=== PATIENT | female | born 1995 | race African-American/Black ===

== ENCOUNTER 2022-10-12 15:01 | Emergency (ER) | payer OTHER, SELFPAY ==
--- NOTE | 2022-10-12 15:07 | ED.EYEPROB ---
HPI - Eye Problem General Chief complaint: Eye Problems Stated complaint: left eye pain Time Seen by Provider: 10/12/22 16:45 Related Data Previous Rx's Medication Instructions Recorded erythromycin 5 mg/gram (0.5 %) eye 0.5 inch ophthalmic (eye) Q4H 5 10/12/22 ointment days #3.5 grams Allergies Allergy/AdvReac Type Severity Reaction Status Date / Time No Known Allergies Allergy Verified 10/12/22 15:12 [facility] Social History Social History Advance Directives: No Advance Directives Information Provided: Yes Physical Exam Vital Signs: Vital Signs: Last Vital Signs Temp 98.1 F 10/12/22 15:08 Pulse 73 10/12/22 15:08 Resp 16 10/12/22 15:08 BP 136/87 10/12/22 15:08 Pulse Ox 100 10/12/22 15:08 O2 Del Method 10/12/22 15:08 BMI result Body Mass Index 29.0 Course Course Course Narrative: RME: onset of symptoms 2 weeks ago, not a contact lens wearer, feels somethins stuck in the eye ans scratching it, having left eye pain swelling. Tried rinsing the eye with saline which was helping initially, but today the swelling and pain significantly increased. PE: PERRL, sclera injected, mild periorbital swelling, EOMi, pain worse with upward gaze, no visible foreign body Plan: visual acuity, will require fluorescein examination Medications Administered Discontinued Medications Generic Name Dose Route Start Last Admin Trade Name Freq PRN Reason Stop Dose Admin Diphtheria/Tetanus/Acell Pertussis 0.5 ml 10/12/22 16:51 10/12/22 17:13 Diphth,Pertus(Acell),Tet Adult 0.5 Ml Syringe IM 10/12/22 16:52 0.5 ml .ONCE ONE Administration Erythromycin 1 cm 10/12/22 17:06 10/12/22 17:25 Erythromycin Base 0.5% Oph Oin 1 Gm Tube EYE-LEFT 10/12/22 17:07 1 cm ONCE ONE Administration Fluorescein Sodium 1 strip 10/12/22 16:51 10/12/22 17:13 Fluorescein Sodium Strip EYE-LEFT 10/12/22 16:52 1 strip ONCE ONE Administration Tetracaine HCl 3 drop 10/12/22 17:06 10/12/22 17:15 Tetracaine Hcl/Pf 0.5% Oph Vida 4 Ml Drops EYE-LEFT 10/12/22 17:07 3 drop ONCE ONE Administration Discharge Plan Discharge Clinical Impression: Corneal abrasion Patient Disposition: Home, Self-Care Instructions: Corneal Abrasion (ED) Additional Instructions: You were evaluated for left eye pain. Exam indicates a corneal abrasion. Please use erythromycin eye ointment every 4 hours while awake for the next 5 days. Wash your hands before and after applying the ointment. Follow-up with Dr. Wakefield. I have provided you his phone number, please call and request an appointment for evaluation. Alternate Tylenol 650 mg every 6 hours and Motrin 600 mg every 6 hours as needed for pain management. Write down what time you take these medications to prevent accidental overdose. Prescriptions: New erythromycin 5 mg/gram (0.5 %) ointment 0.5 inch ophthalmic (eye) Q4H 5 Days Qty: 3.5 0RF Referrals: Jesse Wakefield [Physician] - 3 days (Corneal abrasion) Interventions: ED Discharge Assessment Last Done: 10/12/22 17:25 Discharge Date/Time: 10/12/22 17:26
[2022-10-12 15:08] VITALS: BP 136/87; PULSE 73; RESP 16; TEMP 36.7; O2SAT 100; BMI 29.0
--- NOTE | 2022-10-12 16:54 | ED.EYEPROB ---
HPI - Eye Problem General Chief complaint: Eye Problems Stated complaint: left eye pain Time Seen by Provider: 10/12/22 16:45 Source: patient Mode of arrival: ambulatory Limitations: no limitations History of Present Illness HPI Narrative: 26-year-old female presents with 2 days for left eye irritation. Noted pain after cooking, but does not believe that she had any hot oil splashed into her eye. She feels like there is something stuck in her eye, and is unable to alleviate the pain. She has been using saline eye flushes with poor effect. She does not report change in vision, denies purulent drainage, fevers, chills, or traumatic injury. chief complaint: eye pain Onset (ago): day(s) (2) Onset description: sudden Duration: constant Location: left eye Eye Symptoms: redness, foreign body sensation and photophobia Place: home Severity: moderate Severity scale (1-10): 7 If Pain, Quality: burning Associated symptoms: none Treatments Prior to Arrival: irrigated eye Related Data Patient tetanus UTD: No Previous Rx's Medication Instructions Recorded erythromycin 5 mg/gram (0.5 %) eye 0.5 inch ophthalmic (eye) Q4H 5 10/12/22 ointment days #3.5 grams Allergies Allergy/AdvReac Type Severity Reaction Status Date / Time No Known Allergies Allergy Verified 10/12/22 15:12 Review of Systems Review of Systems: Constitutional: No Fever, No Chills ENT/Mouth: No Ear Pain, No Hoarseness, No sore throat Eyes: Positive left Eye Pain, No Swelling, No Redness, No Foreign Body Cardiovascular: No Chest Pain, No SOB Respiratory: No Cough, No Dyspnea Gastrointestinal: No Nausea, No Vomiting, No Diarrhea, No abdominal Pain Genitourinary: No Dysuria, No Hematuria Musculoskeletal: No joint pain, No Myalgias, No Joint Swelling Skin: No Skin lacerations, No rash Neuro: No Weakness, No Numbness, No Paresthesias, No Loss of Consciousness, No Dizziness, No Headache Psych: No Anxiety/Panic, No Depression Heme/Lymph: no easy bruising, no Lymphadenopathy Endocrine: No Polyuria, No Polydipsia Yes all other systems are reviewed and are negative PMFSH Past Medical History Attestation statement: The following information was validated with the patient. Source: old records reviewed Social History Social History Advance Directives: No Advance Directives Information Provided: Yes Physical Exam Vital Signs: Vital Signs: Last Vital Signs Temp 98.1 F 10/12/22 15:08 Pulse 73 10/12/22 15:08 Resp 16 10/12/22 15:08 BP 136/87 10/12/22 15:08 Pulse Ox 100 10/12/22 15:08 O2 Del Method 10/12/22 15:08 BMI result Body Mass Index 29.0 Appearance: Alert. Oriented X3. Moderate distress. Eyes: Pupils equal, round and reactive to light. Fluorescein uptake at the 11 o'clock position to the left eye. No hyphema. globe intact. EOMI. ENT: Pharynx normal. Neck: Normal inspection. Neck supple. CVS: Normal heart rate and rhythm. Pulses normal. Respiratory: No respiratory distress. Breath sounds normal. Abdomen: Soft and nontender. Skin: Skin warm and dry. Normal skin color. Normal skin turgor. Extremities: Gait well balanced well coordinated. Neuro: No motor deficit. No sensory deficit. Cranial nerves 2-12 intact. Course Course Course Narrative: 26-year-old female presents with 2 days of left eye pain. She noted pain to the left eye while cooking 2 days ago. She has been using saline eye irrigation to help alleviate the foreign body sensation. She does not wear contacts, and has unknown when her last Tdap vaccine was updated. She does not recall getting hit in the face with anything or activities that would put her at high risk for eye foreign body. Patient does have fluorescein uptake at the 11 o'clock position on the left eye. Fluorescein uptake is round and less than 1 mm in diameter consistent with abrasion or ulceration. Bedside Snellen 20/20 OU. Patient does not wear contact lenses, will give erythromycin eye ointment and have patient follow-up with Dr. Wakefield. Pain management with Tylenol and Motrin, patient verbalized understanding of and agrees to plan of care discharge home. Verbalized understanding of signs and symptoms indicating need for emergent intervention. Medications Administered Discontinued Medications Generic Name Dose Route Start Last Admin Trade Name Freq PRN Reason Stop Dose Admin Diphtheria/Tetanus/Acell Pertussis 0.5 ml 10/12/22 16:51 10/12/22 17:13 Diphth,Pertus(Acell),Tet Adult 0.5 Ml Syringe IM 10/12/22 16:52 0.5 ml .ONCE ONE Administration Erythromycin 1 cm 10/12/22 17:06 10/12/22 17:25 Erythromycin Base 0.5% Oph Oin 1 Gm Tube EYE-LEFT 10/12/22 17:07 1 cm ONCE ONE Administration Fluorescein Sodium 1 strip 10/12/22 16:51 10/12/22 17:13 Fluorescein Sodium Strip EYE-LEFT 10/12/22 16:52 1 strip ONCE ONE Administration Tetracaine HCl 3 drop 10/12/22 17:06 10/12/22 17:15 Tetracaine Hcl/Pf 0.5% Oph Vida 4 Ml Drops EYE-LEFT 10/12/22 17:07 3 drop ONCE ONE Administration MDM - Eye Problem Differential Diagnosis Differential diagnosis: Likely corneal abrasion and corneal ulcer Medical Records Attestation: I reviewed the patient's medical records. Discharge Plan Discharge Clinical Impression: Corneal abrasion Patient Disposition: Home, Self-Care Instructions: Corneal Abrasion (ED) Additional Instructions: You were evaluated for left eye pain. Exam indicates a corneal abrasion. Please use erythromycin eye ointment every 4 hours while awake for the next 5 days. Wash your hands before and after applying the ointment. Follow-up with Dr. Wakefield. I have provided you his phone number, please call and request an appointment for evaluation. Alternate Tylenol 650 mg every 6 hours and Motrin 600 mg every 6 hours as needed for pain management. Write down what time you take these medications to prevent accidental overdose. Prescriptions: New erythromycin 5 mg/gram (0.5 %) ointment 0.5 inch ophthalmic (eye) Q4H 5 Days Qty: 3.5 0RF Referrals: Jesse Wakefield [Physician] - 3 days (Corneal abrasion) Interventions: ED Discharge Assessment Last Done: 10/12/22 17:25 Discharge Date/Time: 10/12/22 17:26
[2022-10-12] MEDS: Diphth,Pertus(ACell),Tet Adult 0.5 ML SYRINGE IM (17:13)
[2022-10-12] MEDS: Fluorescein Sodium STRIP 1 STRIP EYE-LEFT (17:13)
[2022-10-12] MEDS: Tetracaine HCl/PF 0.5% Oph Sol 4 ML DROPS 3 DROP EYE-LEFT (17:15)
[2022-10-12] MEDS: Erythromycin Base 0.5% Oph Oin 1 GM TUBE 1 CM EYE-LEFT (17:25)
== END 2022-10-12 17:26 | disposition home or self-care (01) ==
PROVIDERS: Emergency Provider Emergency Medicine
DX: S05.02XA Injury of conjunctiva and corneal abrasion without foreign body, left eye, initial encounter (principal); X58.XXXA Exposure to other specified factors, initial encounter; Y93.G3 Activity, cooking and baking; Y92.010 Kitchen of single-family (private) house as the place of occurrence of the external cause; Y99.9 Unspecified external cause status
CPT/HCPCS: 90471; 90715; 99282; 99284

== ENCOUNTER 2024-09-22 09:55 | Emergency (ER) | payer OTHER, SELFPAY ==
--- NOTE | ~2024-09-22 | XR_ITS ---
EXAMINATION: XR FOOT, RIGHT CLINICAL INFORMATION: Kicked an object, patient states pain after kick boxing bag last night. COMPARISON: None available. TECHNIQUE: AP, lateral, and oblique views of the right foot. FINDINGS: The bone mineralization is normal. Minimal degenerative changes in the first metatarsophalangeal joint. Small plantar calcaneal spur. Mild posterior calcaneal hypertrophic change. XR/XR foot RT min 3V IMPRESSION: 1. Small plantar calcaneal spur. 2. Mild posterior calcaneal hypertrophic change. 3. Minimal degenerative changes first metatarsophalangeal joint. This study was presented today, September 22, 2024, for interpretation. Stat results provided at this time as requested by referring provider. Electronically signed by: Aline Leon MD 09/22/2024 12:39 PM [facility]
[2024-09-22 10:09] VITALS: BP 137/88; PULSE 84; RESP 14; TEMP 36.1; O2SAT 96; BMI 31.5
[2024-09-22 14:00] VITALS: BP 142/87; PULSE 68; RESP 16; TEMP 36.7; O2SAT 100
--- NOTE | 2024-09-22 14:02 | ED.GENADULT ---
HPI - General Adult General Chief complaint: Extremity Injury, Lower Stated complaint: r foot inj Time Seen by Provider: 09/22/24 13:59 Source: patient Mode of arrival: ambulatory Limitations: no limitations History of Present Illness ED Provider: Luis A Hollingsworth PA-C HPI narrative: 28 yold female healthy with no pmh presents to the ED for right foot pain. She states she was at the gym kicked the kick boxing bag and heard the anterior part of the foot. Patient denies any cracking or popping sound. Patient states no other complaints Related Data Previous Rx's ?Medication ?Instructions ?Recorded erythromycin 5 mg/gram (0.5 %) eye 0.5 inch ophthalmic (eye) Q4H 5 10/12/22 ointment days #3.5 grams naproxen 500 mg tablet 500 mg PO BID PRN pain 7 days #14 09/22/24 tabs Allergies Allergy/AdvReac Type Severity Reaction Status Date / Time No Known Allergies Allergy Verified 09/22/24 10:14 Review of Systems Review of Systems: Right anterior foot pain Yes all other systems are reviewed and are negative [facility] Social History Social History Advance Directives: No Advance Directives Information Provided: Yes Do you have a plan to hurt others: No Plan Physical Exam ED Vital Signs: Vital Signs - 24 hr 09/22/24 10:09 09/22/24 14:00 09/22/24 14:18 Temperature 97 F 98.0 F 98.0 F Pulse Rate 84 68 68 Respiratory Rate 14 16 18 Blood Pressure 137/88 142/87 H 142/87 H Pulse Oximetry 96 100 100 Oxygen Delivery Method Room Air Room Air Room Air BMI result Body Mass Index 31.5 Const General: cooperative, healthy appearing, comfortable, no acute distress, well developed, alert, awake and Physically active Orientation/consciousness: patient oriented x3 HENMT Head: Yes normal to inspection, Yes No palpable skull fracture present, Yes normocephalic and Yes atraumatic Eyes General: appearance normal, both eyes and all related structures Neck Neck: Yes normal visual inspection, Yes full ROM, Yes no lymphadenopathy, Yes no meningeal signs, Yes trachea midline, Yes supple, No anterior neck swelling and No tender Chest Chest palpation & inspection: normal inspection of the chest and normal palpation of entire chest wall Resp Effort & Inspection: normal respiratory effort and able to speak in complete sentences Auscultation: clear to auscultation bilaterally Cardio Jugular venous distension: no JVD Heart sounds: S1 normal heart sound present and S2 normal heart sound present GI Inspection: Yes normal to inspection Palpation (GI): Soft to palpation, not firm, nontender, no guarding and not rigid General: No CVA tenderness and Yes no CVA tenderness Back/Spine/Pelvis Back: no CVA tenderness, No CVA tenderness and No back tenderness Skin General skin exam: no rashes or lesions noted, elasticity normal and turgor normal Neuro General: patient oriented x3, gait normal, tone normal, moves all extremities, Normal light touch and pain sensation, no meningeal signs, no focal motor deficits, CN's II-XI intact bilaterally and normal sensation to monofilament Extrem General: Yes normal to inspection, Yes full ROM and Yes capillary refill normal Ankle/foot/toe images: 1. Slight tenderness on palpation. Negative for ecchymosis, crepitus, deformity, swelling, bluish black discoloration, redness, or any other concerning symptoms. Rest of extremity normal. Motor/neuro/vascular exam intact Psych Appearance: grossly normal, well kempt and not disheveled Medical Decision Making Medical Decision Making MDM Narrative: 28-year-old female with right foot pain after kicking bag with foot or kick boxing. Patient states no other injury. Patient states occurred last night. Foot exam normal. Not suspecting cellulitis, DVT, compartment syndrome, dislocation, osteomyelitis, necrotizing fasciitis, arterial occlusion. Patient explained worrisome signs informed return to the ED immediately Differential Diagnosis Differential Diagnoses: The differential diagnosis associated with the presentation includes (Fracture, dislocation) Admission/Observation Consideration of admission/observation: Escalation of care including admission/observation considered Independent Historian Clinical information obtained from an independent historian. History obtained from or confirmed by: Other (Patient) External Record Review External record reviewed: Other (Prior visits) Prescription Management I considered prescription management with: Pain Medication Discharge Plan Discharge Clinical Impression: Foot sprain Patient Disposition: Home, Self-Care Instructions: Foot Sprain (ED), Heel Spur (ED), Cold Compress or Soak (ED) Additional Instructions: Recommend follow-up with primary care provider. Return to the ED for redness, swelling, calf pain, bluish black discoloration, severe pain, inability to walk, chest pain, shortness of breath, or any other concerning symptoms. XR/XR foot RT min 3V IMPRESSION: 1. Small plantar calcaneal spur. 2. Mild posterior calcaneal hypertrophic change. 3. Minimal degenerative changes first metatarsophalangeal joint. This study was presented today, September 22, 2024, for interpretation. Stat results provided at this time as requested by referring provider. Electronically signed by: Aline Leon MD 09/22/2024 12:39 PM EST Prescriptions: New naproxen 500 mg tablet 500 mg PO BID PRN (Reason: pain) 7 Days Qty: 14 0RF No Action erythromycin 5 mg/gram (0.5 %) ointment 0.5 inch ophthalmic (eye) Q4H 5 Days Qty: 3.5 0RF Stand Alone Forms: Work/School Release Interventions: ED Discharge Assessment Last Done: 09/22/24 14:18 Discharge Date/Time: 09/22/24 14:21 Print Language: Wolof
[2024-09-22 14:18] VITALS: BP 142/87; PULSE 68; RESP 18; TEMP 36.7; O2SAT 100
--- NOTE | 2024-09-22 14:18 | PC.NURSE ---
julia wrap applied by tech
== END 2024-09-22 14:21 | disposition home or self-care (01) ==
PROVIDERS: Emergency Provider Emergency Medicine
DX: S93.601A Unspecified sprain of right foot, initial encounter (principal); W21.89XA Striking against or struck by other sports equipment, initial encounter; M79.671 Pain in right foot; Y93.71 Activity, boxing; Y92.39 Other specified sports and athletic area as the place of occurrence of the external cause; Y99.8 Other external cause status
CPT/HCPCS: 73630; 99283